=== PATIENT | female | born 1990 | race American Indian/Alaskan Native ===

== ENCOUNTER 2019-07-10 15:51 | Emergency (ER) | payer OTHER ==
[2019-07-10] MEDS ORDERED: NORCO 5/325 PO STA (16:41)
--- NOTE | 2019-07-10 16:43 | Emergency Department Report ---
Blank Doc - Documentation Documentation: 28 y/o with history of right knee injury. was going down steps and knee gave out causing a popping pain and antalgic gait due to pain his initial assessment/diagnostic orders/clinical plan/treatment(s) is/are subject to change based on patient's health status, clinical progression and re- assessment by fellow clinical providers in the ED. Further treatment and workup at subsequent clinical providers discretion. Patient/guardians urged not to elope from the ED as their condition may be serious if not clinically assessed and managed. Initial orders include: xray
--- NOTE | 2019-07-10 17:40 | XRay Report ---
RIGHT KNEE 4 VIEWS INDICATION / CLINICAL INFORMATION: Right knee pain. COMPARISON: None available. FINDINGS: BONES and JOINT(S): No acute fracture or subluxation. No significant arthritis. SOFT TISSUES: No significant abnormality. ADDITIONAL FINDINGS: None. IMPRESSION: No significant abnormality of the right knee. Signer Name: Kee Salcedo MD Signed: 07/10/2019 5:36 PM Workstation Name: [id number]
--- NOTE | 2019-07-10 18:43 | Emergency Department Report ---
ED Extremity Problem HPI - General Chief complaint: Extremity Injury, Lower Stated complaint: FALL INJURY/LFT ANKLE/RT KNEE PAIN Time Seen by Provider: 07/10/19 16:39 Source: patient Mode of arrival: Ambulatory Limitations: No Limitations - History of Present Illness Initial comments: This is a 28-year-old female with a history of right knee surgery repair who presents to the ED complaining of right knee pain. She states that she was coming down some steps earlier today when her right knee gave out and she fell down words. She denies any loss of consciousness or injuries to the head or neck. Patient is complaining of right knee pain with left ankle pain after she fell. MD Complaint: extremity pain Location: right, knee History of Same: Yes (right knee surgery) -: Yes arthralgia Severity scale (0 -10): 7 Quality: aching, sharp Consistency: constant Worsens with: weight bearing - Related Data Previous Rx's Medication Instructions Recorded Last Taken Type Cyclobenzaprine [Flexeril] 10 mg PO QHS PRN #20 tablet 07/10/19 Unknown Rx HYDROcodone/APAP 5-325 [[place] 1 each PO Q6HR PRN #10 tablet 07/10/19 Unknown Rx 5/325] Ibuprofen [Motrin 800 MG tab] 800 mg PO Q8HR PRN #30 tablet 07/10/19 Unknown Rx Allergies Allergy/AdvReac Type Severity Reaction Status Date / Time No Known Allergies Allergy Unverified 07/10/19 15:54 ED Review of Systems ROS: Stated complaint: FALL INJURY/LFT ANKLE/RT KNEE PAIN Other details as noted in HPI Comment: All other systems reviewed and negative ED Past Medical Hx - Past Medical History Previous Medical History?: No - Surgical History Additional Surgical History: RIGHT KNEE - Social History Smoking Status: Never Smoker Substance Use Type: None - Medications Home Medications: Home Medications Medication Instructions Recorded Confirmed Last Taken Type Cyclobenzaprine [Flexeril] 10 mg PO QHS PRN #20 tablet 07/10/19 Unknown Rx HYDROcodone/APAP 5-325 [[place] 1 each PO Q6HR PRN #10 tablet 07/10/19 Unknown Rx 5/325] Ibuprofen [Motrin 800 MG tab] 800 mg PO Q8HR PRN #30 tablet 07/10/19 Unknown Rx ED Physical Exam - General Limitations: No Limitations General appearance: alert, in no apparent distress - Head Head exam: Present: atraumatic, normocephalic - Eye Eye exam: Present: normal appearance - ENT ENT exam: Present: mucous membranes moist - Neck Neck exam: Present: normal inspection - Respiratory Respiratory exam: Present: normal lung sounds bilaterally. Absent: respiratory distress - Cardiovascular Cardiovascular Exam: Present: regular rate, normal rhythm. Absent: systolic murmur, diastolic murmur, rubs, gallop - GI/Abdominal GI/Abdominal exam: Present: soft, normal bowel sounds - Extremities Exam Extremities exam: Present: normal inspection, tenderness (palpation of the right knee joint), normal capillary refill (pain with flexion of the knee), other (valgus and varus test negative). Absent: joint swelling, calf tenderness - Back Exam Back exam: Present: normal inspection - Neurological Exam Neurological exam: Present: alert, oriented X3 - Psychiatric Psychiatric exam: Present: normal affect, normal mood - Skin Skin exam: Present: warm, dry, intact, normal color. Absent: rash ED Course Vital Signs 07/10/19 16:39 Temperature 98.6 F Pulse Rate 78 Respiratory 16 Rate Blood Pressure 124/76 O2 Sat by Pulse 99 Oximetry ED Medical Decision Making - Radiology Data Radiology results: report reviewed, image reviewed RIGHT KNEE 4 VIEWS INDICATION / CLINICAL INFORMATION: Right knee pain. COMPARISON: None available. FINDINGS: BONES and JOINT(S): No acute fracture or subluxation. No significant arthritis. SOFT TISSUES: No significant abnormality. ADDITIONAL FINDINGS: None. IMPRESSION: No significant abnormality of the right knee. Signer Name: Kee Salcedo MD Signed: 07/10/2019 5:36 PM Workstation Name: [id number] Transcribed By: JAKE Dictated By: Kee Salcedo MD Electronically Authenticated By: Kee Salcedo MD Signed Date/Time: 07/10/19 9002 - Medical Decision Making 28-year-old female presents to ED with sprain of the right knee and left ankle ED course: Patient received [place] in ED. Vital signs are normal patient is in no acute distress Discussed with patient follow-up with primary care physician. Discussed the patient and take medications as prescribed. Patient has no neurological deficit. Patient is alert and oriented 3 and understands all instructions given. Discussed drowsiness effect of Flexeril makes her drowsy and not to operate machinery while taking flexeril Critical care attestation.: If time is entered above; I have spent that time in minutes in the direct care of this critically ill patient, excluding procedure time. ED Disposition Clinical Impression: Right knee sprain, Left ankle strain Disposition: TO HOME OR SELFCARE Is pt being admited?: No Does the pt Need Aspirin: No Condition: Stable Instructions: Knee Sprain (ED), RICE Therapy (ED) Additional Instructions: Make sure to follow up with the primary care physician as discussed. Take all your medications as you've been prescribed. If you have any worsening symptoms or develop new symptoms please return to ED immediately. Prescriptions: Cyclobenzaprine [Flexeril] 10 mg PO QHS PRN #20 tablet PRN Reason: Muscle Spasm Ibuprofen [Motrin 800 MG tab] 800 mg PO Q8HR PRN #30 tablet PRN Reason: Pain HYDROcodone/APAP 5-325 [[place] 5/325] 1 each PO Q6HR PRN #10 tablet PRN Reason: Pain Referrals: EMMANUEL BLEDSOE MD [Staff Physician] - 3-5 Days Forms: Work/School Release Form(ED) Time of Disposition: 18:44
[2019-07-10 19:24] VITALS: BP 112/74
== END 2019-07-10 19:24 | disposition home or self-care (01) ==
LOC: ED 15:51
DX: S83.92XA Sprain of unspecified site of left knee, initial encounter (principal); S96.912A Strain of unspecified muscle and tendon at ankle and foot level, left foot, initial encounter; W18.30XA Fall on same level, unspecified, initial encounter; Y93.89 Activity, other specified; Y92.89 Other specified places as the place of occurrence of the external cause; Y99.8 Other external cause status

== ENCOUNTER 2020-05-06 09:23 | Emergency (ER) | payer SELFPAY ==
[2020-05-06 09:38] VITALS: BP 133/95
--- NOTE | 2020-05-06 13:14 | Emergency Department Report ---
ED General Adult HPI - General Chief complaint: Extremity Injury, Lower Stated complaint: FALL, KNEE PAIN Time Seen by Provider: 05/06/20 13:00 Source: patient Mode of arrival: Ambulatory Limitations: No Limitations - History of Present Illness Initial comments: 29-year-old -[place] female patient presents with complaints of right knee pain due to a fall injury x this morning. Patient states her knee suddenly gave out and fell directly onto her knee and is having severe pain and swelling. Patient states history of right knee reconstruction and 2018. She rates her pain as a 8/10 in severity and states she is having difficulty ambulating and bending the knee. She denies any numbness/tingling/weakness in her leg. -: Sudden Consistency: constant - Related Data Previous Rx's Medication Instructions Recorded Last Taken Type Cyclobenzaprine [Flexeril] 10 mg PO QHS PRN #20 tablet 07/10/19 Unknown Rx HYDROcodone/APAP 5-325 [[place] 1 each PO Q6HR PRN #10 tablet 07/10/19 Unknown Rx 5/325] Ibuprofen [Motrin 800 MG tab] 800 mg PO Q8HR PRN #30 tablet 07/10/19 Unknown Rx Acetaminophen/Codeine [Tylenol 1 tab PO Q6H PRN #6 tab 05/06/20 Unknown Rx /Codeine # 3 tab] Ibuprofen [Motrin] 800 mg PO Q8HR PRN #21 tablet 05/06/20 Unknown Rx Allergies Allergy/AdvReac Type Severity Reaction Status Date / Time No Known Allergies Allergy Unverified 07/10/19 15:54 ED Review of Systems ROS: Stated complaint: FALL, KNEE PAIN Other details as noted in HPI Constitutional: denies: diaphoresis Musculoskeletal: joint swelling, arthralgia. denies: back pain Skin: as per HPI, other (Abrasion to right knee) Neurological: abnormal gait. denies: weakness, numbness, paresthesias ED Past Medical Hx - Past Medical History Previous Medical History?: No - Surgical History Past Surgical History?: Yes Additional Surgical History: RIGHT KNEE - Social History Smoking Status: Never Smoker Substance Use Type: None - Medications Home Medications: Home Medications Medication Instructions Recorded Confirmed Last Taken Type Cyclobenzaprine [Flexeril] 10 mg PO QHS PRN #20 tablet 07/10/19 Unknown Rx HYDROcodone/APAP 5-325 [[place] 1 each PO Q6HR PRN #10 tablet 07/10/19 Unknown Rx 5/325] Ibuprofen [Motrin 800 MG tab] 800 mg PO Q8HR PRN #30 tablet 07/10/19 Unknown Rx Acetaminophen/Codeine [Tylenol 1 tab PO Q6H PRN #6 tab 05/06/20 Unknown Rx /Codeine # 3 tab] Ibuprofen [Motrin] 800 mg PO Q8HR PRN #21 tablet 05/06/20 Unknown Rx ED Physical Exam - General Limitations: No Limitations General appearance: alert, in no apparent distress - Head Head exam: Present: atraumatic - Eye Eye exam: Present: normal appearance. Absent: scleral icterus - Neck Neck exam: Present: normal inspection - Respiratory Respiratory exam: Absent: respiratory distress - Cardiovascular Cardiovascular Exam: Present: regular rate - Expanded Lower Extremity Exam Right Knee exam: Present: tenderness, swelling (Moderate anterior swelling with tenderness to palpation noted over the lower portion of the patella), abrasion. Absent: full ROM (Patient unable to bend knee secondary to pain), ecchymosis Neuro vascular tendon exam: Present: no vascular compromise - Neurological Exam Neurological exam: Present: alert, oriented X3, abnormal gait (Antalgic gait favoring the right leg) - Psychiatric Psychiatric exam: Present: normal affect, normal mood - Skin Skin exam: Present: warm, dry, normal color, abrasion (Anterior right knee). Absent: rash ED Course Vital Signs 05/06/20 09:34 Temperature 98.7 F Pulse Rate 77 Respiratory 18 Rate Blood Pressure 133/95 O2 Sat by Pulse 98 Oximetry ED Medical Decision Making - Radiology Data Radiology results: report reviewed RIGHT KNEE 4 VIEWS INDICATION: fall directly onto knee, lower patella pain. COMPARISON: None. IMPRESSION: No acute osseous injury or joint pathology is appreciated. There is mild anterior soft tissue swelling. Signer Name: Eros English Jr, MD Signed: 05/06/2020 2:34 PM Workstation Name: [id number] - Medical Decision Making Patient here with right knee pain after fall onto her knee today. Significant swelling and tenderness noted on exam, so an x-ray was performed. X-rays negative for any acute fractures. Patient states she does currently have an orthopedic doctor and states she will follow-up with him within 3 to 5 days. Knee brace placed given patient's decreased range of motion. She is well- appearing and stable for discharge home. Strict return precautions were discussed in detail with patient who verbalizes understanding. Critical care attestation.: If time is entered above; I have spent that time in minutes in the direct care of this critically ill patient, excluding procedure time. ED Disposition Clinical Impression: Right knee sprain Qualifiers: Encounter type: initial encounter Involved ligament of knee: other ligament Qualified Code(s): S83.8X1A - Sprain of other specified parts of right knee, initial encounter Disposition: TO HOME OR SELFCARE Is pt being admited?: No Condition: Stable Instructions: Knee Sprain (ED) Additional Instructions: Please follow-up with your orthopedic physician within 3 to 5 days. Prescriptions: Ibuprofen [Motrin] 800 mg PO Q8HR PRN #21 tablet PRN Reason: pain Acetaminophen/Codeine [Tylenol /Codeine # 3 tab] 1 tab PO Q6H PRN #6 tab PRN Reason: Pain , Severe (7-10)
[2020-05-06] MEDS ORDERED: HYDROcodone/ACETAMINOPHEN 10-325MG TAB PO ONE (13:21)
[2020-05-06] MEDS ORDERED: DIPHtheria,PERTUSSIS(ACELL),TETANUS VACCINE/PF 0.5 ML VIAL IM ONE (13:23)
--- NOTE | 2020-05-06 14:39 | XRay Report ---
RIGHT KNEE 4 VIEWS INDICATION: fall directly onto knee, lower patella pain. COMPARISON: None. IMPRESSION: No acute osseous injury or joint pathology is appreciated. There is mild anterior soft tissue swelling. Signer Name: Eros English Jr, MD Signed: 05/06/2020 2:34 PM Workstation Name: [id number]
== END 2020-05-06 17:16 | disposition home or self-care (01) ==
LOC: ED 09:23
DX: S83.91XA Sprain of unspecified site of right knee, initial encounter (principal); Z79.899 Other long term (current) drug therapy; Z98.890 Other specified postprocedural states; W18.30XA Fall on same level, unspecified, initial encounter; Y93.89 Activity, other specified; Y92.89 Other specified places as the place of occurrence of the external cause; Y99.8 Other external cause status
CPT/HCPCS: 90471; 90715